=== PATIENT | female | born 1975 | race Caucasian/White ===

== ENCOUNTER → 2024-03-18 06:24 | Day surgery (SDC) | payer BC, SELFPAY | LOC: GI 06:24 | PROVIDERS: ATTENDING PHYSICIAN Internal Medicine Gastroenterology; FAMILY PHYSICIAN Family Medicine | DX: D50.9 Iron deficiency anemia, unspecified (principal); K52.9 Noninfective gastroenteritis and colitis, unspecified; K64.8 Other hemorrhoids; K63.89 Other specified diseases of intestine; K44.9 Diaphragmatic hernia without obstruction or gangrene; K22.2 Esophageal obstruction | CPT/HCPCS: 45380; 43239; 88305 ==

== ENCOUNTER → 2024-03-25 14:34 | Outpatient (REF) | payer BC, SELFPAY | LOC: HWRAD 14:34 | PROVIDERS: ATTENDING PHYSICIAN Internal Medicine Gastroenterology; FAMILY PHYSICIAN Family Medicine | DX: K38.8 Other specified diseases of appendix (principal) | CPT/HCPCS: 74177; Q9967 ==

== ENCOUNTER → 2024-04-15 18:51 | Outpatient (REF) | payer BC, SELFPAY | LOC: MRI 3T 18:51 | PROVIDERS: ATTENDING PHYSICIAN Obstetrics & Gynecology; FAMILY PHYSICIAN Family Medicine; REFERRING PHYSICIAN Surgery | DX: R93.89 Abnormal findings on diagnostic imaging of other specified body structures (principal) | CPT/HCPCS: 72197; A9575 ==

== ENCOUNTER 2024-05-10 12:11 | Day surgery (SDC) | payer BC, SELFPAY ==
[2024-05-02 09:04] LABS: INR 0.95; PT 13.2 Sec (11.4-14.6)
[2024-05-02 09:05] LABS: APTT 30.1 Sec (23.4-35.0)
[2024-05-02 09:13] LABS: Hematocrit 38.9 % (37.0-47.0); Hemoglobin 13.3 g/dL (12.0-16.0); Mean Corp Hgb Conc. 34.2 g/dL (33.0-37.0); Mean Corpuscular Hgb 30.4 pg (27.0-31.0); Mean Platelet Volume 9.9 fL (7.4-10.4); Platelet Count 262 10^3/uL (130-400); Red Blood Cell Count 4.37 10^6/uL (4.20-5.40); Red Cell Dist. Width 12.5 % (11.5-14.5); White Blood Cell Count 4.2 10^3/uL (4.8-10.8)
[2024-05-02 09:33] VITALS: BMI 25.3
[2024-05-02 09:37] LABS: ALT (SGPT) 15 U/L (0-35); AST (SGOT) 24 U/L (14-36); Albumin 4.4 g/dl (3.5-5.0); Alkaline Phosphatase 52 U/L (38-126); Blood Urea Nitrogen 14 mg/dl (7-17); Calcium 9.4 mg/dl (8.4-10.2); Carbon Dioxide 28 mmol/L (22-30); Chloride 103 mmol/L (98-107); Estimated Creatinine Clearance 97 ml/min; Glucose 82 mg/dl (70-99); Potassium 4.4 mmol/L (3.5-5.1); Sodium 141 mmol/L (135-145); Total Bilirubin 0.5 mg/dl (0.2-1.3); Total Protein 7.1 g/dl (6.3-8.2); eGFR > 60.00
[2024-05-02 10:33] LABS: Glycohemoglobin (HgbA1c) 5.1 % (4.0-5.6)
[2024-05-10] VITALS (12 sets, daily range): BP systolic 110–134; BP diastolic 58–86; BMI 25.3
[2024-05-10] MEDS: ENTEREG 12 MG PO (12:22)
[2024-05-10] MEDS: TYLENOL 1000 MG PO (12:22)
[2024-05-10] MEDS: HEPARIN 5000 UNITS SC (12:22)
[2024-05-10 12:30] LABS: HCG, Urine Qualitative Screen Negative
--- NOTE | 2024-05-10 13:01 | W.SUR.PREOP ---
Pre-Operative Surgical Note
-
I have examined this patient prior to the performance of the scheduled procedure.
The patient's condition is unchanged from the time of the current History and
Physical and the patient is able to undergo the scheduled procedure.
--- NOTE | 2024-05-10 17:53 | W.IMMPOSTOP ---
Surgical Immed Post Op Note
-
Primary Surgeon: Jc Mc MD
Corporate Sales Representative: Angeles Kebede DO
Assistants: CORINA Gunderson & KAROL Hamm
Pre-op Diagnosis: Mucocele of the appendix, bilateral ovarian cysts
Post-op Diagnosis: Same
Procedure Performed: Robotic ileocolectomy with isoperistaltic anastomosis
Robotic total hyserectomy
Anesthesia Type: GET
Specimen / Cultures: Terminal ileum, cecum, appendix and portion of ascending colon
Uterus and bilateral ovaries and fallopian tubes, cysts
Estimated Blood Loss: 30cc
Complications: None
Operative Findings: Large mucocele of the appendix (unable to perform an appendectomy due to the anatomy)
Bilateral ovarian cysts/endometriosis
Patient's updated in the waiting room.
[2024-05-10] MEDS: ZOFRAN 4 MG IV (18:20)
[2024-05-10] MEDS: D5LR 1000 IV (18:29)
[2024-05-10] MEDS: TORADOL 15 MG IV ×2 (18:29→23:38)
[2024-05-10] MEDS: COMPAZINE 5 MG IV (18:40)
--- NOTE | 2024-05-10 20:00 | PTCARENOTE ---
Patient arrived via bed from PACU to 2 South. AAOx3 but somewhat drowsy, oriented to room and plan of care. at bedside. 7 lap sites with glue CDI, lopez draining yellow concentrated urine, IVF infusing per order. VSS, assessment on going.
[2024-05-10] MEDS: TYLENOL PO (21:10)
--- NOTE | 2024-05-10 23:11 | W.IMMPOSTOP ---
Surgical Immed Post Op Note
-
Primary Surgeon: Angeles Kebede DO
Kiln Burner: CORINA Gunderson
Pre-op Diagnosis: Bilateral complex adnexal cystic masses, menorrhagia, dysmenorrhea
Post-op Diagnosis: same; bilateral endometriomas, severe adhesions in posterior cul de sac involving both ovaries and uterus, pelvic peritoneum, enlarged uterus, probable adenomyosis.
Procedure Performed: Robotic assisted total laparoscopic hysterectomy, bilateral salpingo-oopherectomy, extensive lysis adhesions
Anesthesia Type: general ET Dr. Ladd
Specimen / Cultures: uterus, cervix, bilateral tubes and ovaries (containing endometriomas)
Estimated Blood Loss: 15ml
Complications: none
Operative Findings: Enlarged globular shaped uterus with appearance suspicious for adenomyosis. Large left endometrioma/chocolate cyst approx 6 cm with adhesions involving more than 80% of ovary to posterior uterus and pelvic peritoneum in cul de
sac. Right ovary with smaller endometrioma densely adherent to posterior uterus and pelvic peritoneum also involving over 80% of ovary. Tubes with some adhesions but otherwise normal in appearance.
Counts correct at end of case.
Stable at completion of my portion of the case. Dr. Mc resumed care of patient to complete the surgery.
[2024-05-10] MEDS: TYLENOL 650 MG PO (23:39)
[2024-05-11 03:05] VITALS: BP 129/90
[2024-05-11] MEDS: D5LR 1000 IV ×2 (04:02→15:09)
[2024-05-11] MEDS: TYLENOL PO (04:49)
[2024-05-11] MEDS: TORADOL 15 MG IV ×4 (05:51→23:00)
[2024-05-11 06:41] VITALS: BMI 25.7
[2024-05-11 06:52] LABS: % Basophils 0.1 % (0-2); % Immature Granulocytes 0.4 % (0-0.5); % Lymphocytes 4.1 % (20.5-51.1); % Monocytes 3.1 % (1.7-9.3); % Neutrophils 92.3 % (42.2-75.2); Absolute Immature Granulocytes 0.1 10^3/uL (0-0.05); Absolute Lymphocytes 0.5 10^3/uL (1.2-3.4); Absolute Monocytes 0.4 10^3/uL (0.1-0.6); Absolute Neutrophils 10.6 10^3/uL (1.4-6.5); Hematocrit 37.8 % (37.0-47.0); Hemoglobin 13.3 g/dL (12.0-16.0); Mean Corp Hgb Conc. 35.2 g/dL (33.0-37.0); Mean Corpuscular Hgb 31.2 pg (27.0-31.0); Mean Corpuscular Volume 88.7 fL (81.0-99.0); Mean Platelet Volume 9.5 fL (7.4-10.4); Nucleated Red Blood Cells % 0 %; Platelet Count 238 10^3/uL (130-400); Red Blood Cell Count 4.26 10^6/uL (4.20-5.40); Red Cell Dist. Width 12.2 % (11.5-14.5); White Blood Cell Count 11.5 10^3/uL (4.8-10.8)
[2024-05-11 07:00] VITALS: BP 121/80
[2024-05-11 07:16] LABS: Blood Urea Nitrogen 10 mg/dl (7-17); Calcium 9.1 mg/dl (8.4-10.2); Carbon Dioxide 23 mmol/L (22-30); Chloride 103 mmol/L (98-107); Estimated Creatinine Clearance 111 ml/min; Glucose 160 mg/dl (70-99); Potassium 4.4 mmol/L (3.5-5.1); Sodium 139 mmol/L (135-145); eGFR > 60.00
[2024-05-11] MEDS: ENTEREG 12 MG PO ×2 (09:05→19:55)
[2024-05-11] MEDS: PROZAC 20 MG PO (09:05)
[2024-05-11] MEDS: TYLENOL 650 MG PO ×5 (09:05→23:01)
--- NOTE | 2024-05-11 10:39 | W.PN.CRS1 ---
Today's Communication / Plan
-
Clear liquids
Voiding trial
Assessment/Plan
-
49 yo female with history of appendiceal mucocele and bilateral complex adnexal cysttic mass and dysmenorrhea who is POD #1 Robotic ileocolectomy with isoperistaltic anastomosis (Alexandro) with robotic total hysterectomy and BSO (Delio)
AFVSS
Labs stable
No n/v or flatus
--C/W CLD, will advance to LRD once passing flatus
--Analgesics scheduled and prn
--OOB/Ambulate
--Discontinue lopez
--Complete current bag of IVF then D/C
--OOB/Ambulate
--OR path pending
--Lovenox 40mg SQ for VTE ppx
Subjective Data
Procedure
05/10/24 Robotic ileocolectomy with isoperistaltic anastomosis
Robotic total hysterectomy BSO
Subjective Data
Date of Service: May 11, 2024
Patient seeen and examined at bedside with Dr. Mc.
Objective Data
-
Vital Signs
Temp Pulse Resp BP Pulse Ox
98.5 F 89 16 121/80 94
05/11/24 07:00 05/11/24 07:00 05/11/24 07:00 05/11/24 07:00 05/11/24 08:00
Intake & Output
05/10/24 05/11/24 05/12/24
06:59 06:59 06:59
Intake Total 1250 / 1250
Output Total 1120 / 1120
Balance 130 / 130
Intake:
Oral fluids 960 / 960
IV fluids (Total) 290 / 290
D5LR 190 / 190
LR 100 / 100
Output:
Urine, Lopez 1120 / 1120
Lab Results
05/11/24 06:07
05/11/24 06:07
Physical Exam
-
General: No Acute Distress
HEENT: Grossly Normal
Abdomen: Soft, Non Distended and Tender (minimal to incisions)
Skin: Warm and Dry
Incision: Clear, Dry, Intact
[2024-05-11 11:32] VITALS: BP 124/75
--- NOTE | 2024-05-11 11:47 | CM ---
Patient seen at bedside. Patient states that she lives in a 2 story home and has no DME and Dr. Cano is her PCP. Patient uses the [facility] in [place]. Patient stated that she plans for discharge home tomorrow. Patient family also present. Patient with
no needs at this time. CM will continue to follow for discharge planning needs.
Plan; home with no needs anticipated.
--- NOTE | 2024-05-11 14:30 | W.PN.OBG.DWH ---
Today's Communication / Plan
-
Pain mgmt
OOB
Diet as per colorectal service.
Assessment/Plan
-
A/P:
POD#1 s/p RA [facility] BSO for menorrhagia, suspected adenomyosis, and severe endometriosis with pelvic adhesions.
Doing well postop.
Analgesia mgmt
OOB
Diet as per colorectal service.
Reviewed operative findings. Discussed expectations from changes in hormones due to BSO.
Discussed ERT as option to help alleviate vasomotor symptoms, vaginal estradiol for prevention atrophic vaginal changes with menopause.
Subjective Data
-
Feeling well. No complaints.
Adequate pain control.
No flatus yet but feeling some 'rumblings'
No dizziness/lightheadedness
Objective Data
-
Laboratory Results
05/11/24 06:07
05/11/24 06:07
Vital Signs
Temp Pulse Resp BP Pulse Ox
98.4 F 83 16 124/75 98
05/11/24 11:32 05/11/24 11:32 05/11/24 11:32 05/11/24 11:32 05/11/24 11:32
VSS afeb
cor: regular rate
abd: soft +bs ND NT inc cdi
no calf pain, scds on
[2024-05-11 15:06] VITALS: BP 117/82
[2024-05-11] MEDS: LOVENOX 40 MG SC (17:13)
[2024-05-11 19:38] VITALS: BP 119/76
[2024-05-11 23:11] VITALS: BP 132/73
[2024-05-12 00:50] VITALS: BP 118/73
[2024-05-12] MEDS: D5LR IV (01:25)
[2024-05-12] MEDS: TYLENOL 650 MG PO ×6 (03:11→23:04)
[2024-05-12 05:23] LABS: Hematocrit 28.9 % (37.0-47.0); Hemoglobin 9.9 g/dL (12.0-16.0); Mean Corp Hgb Conc. 34.3 g/dL (33.0-37.0); Mean Corpuscular Hgb 30.9 pg (27.0-31.0); Mean Corpuscular Volume 90.3 fL (81.0-99.0); Mean Platelet Volume 9.3 fL (7.4-10.4); Platelet Count 192 10^3/uL (130-400); Red Cell Dist. Width 12.5 % (11.5-14.5); White Blood Cell Count 8.8 10^3/uL (4.8-10.8)
[2024-05-12 05:50] VITALS: BP 119/77
--- NOTE | 2024-05-12 06:10 | W.PN.UPDATE ---
Update Note
Progress Note Update
Three episodes of dark brown to crimson colored stool overnight. Asymptomatic with bp 119/77. Hgb 13.3 to 9.9 this am. She did receive 3 liters of IVF. EBL from procedure estimated at 30 ml. Some crimson colored drainage noted on chux without bm.
Toradol and Lovenox held. Dr. Mc updated via TT and acknowledged receipt.
[2024-05-12 06:45] VITALS: BMI 24.5
[2024-05-12 07:20] VITALS: BP 106/75
[2024-05-12] MEDS: PROZAC 20 MG PO (08:06)
[2024-05-12] MEDS: ENTEREG 12 MG PO ×2 (08:06→19:43)
--- NOTE | 2024-05-12 10:29 | CM ---
Patient seen at bedside, patient awaiting clarification about discharge. CM will continue to follow for discharge planning needs.
Plan; home with no needs anticipated.
--- NOTE | 2024-05-12 11:21 | W.PN.OBG.DWH ---
Addendum entered and electronically signed by Angeles Kebede, 05/12/24 12:25:
typo correction: * blood transfusion
Original Note:
Today's Communication / Plan
-
Stat H/H
Pt aware of possibility of bleed transfusion
NPO
For colorectal evaluation today. Dr. Mc in surgery presently.
Assessment/Plan
-
POD#2 s/p RA TLH BSO for endometriosis/endoemtriomas/adhesion, adenomyosis, menorrhagia ()
S/P robotic ileocecectomy with isoperistaltic anastomosis ()
Postop anemia and drop in hgb. Will check stat H/H. Will make NPO for now.
She does not exhibit eveidence of vaginal bleeding. Suspect GI source.
D/W Portia Edwards PA-C (colorectal service).
Discussed with patient- aware of possible transfusion.
Dr. Mc in OR presently.
Subjective Data
-
Pt seen and examined.
Was in BR and reported what seemed like ' a lot ' of blood in toilet. Passed something per rectum (not sure if stool or clot).
Feels a little lightheaded with ambulation.
Adequate pain relief.
Yandel diet
+ FLatus
No bleeding per vagina.Pad has scant pink superficial staining only.
Objective Data
-
Laboratory Results
05/11/24 06:07
Vital Signs
Temp Pulse Resp BP Pulse Ox
97.5 F 88 16 106/75 98
05/12/24 07:20 05/12/24 07:20 05/12/24 07:20 05/12/24 07:20 05/12/24 08:00
VSS afeb pulse 88 T 97.5 afeb
Appearance: pleasant, no acute distress
Cor: regular
Abd: soft ND NT inc cdi
Vagina- no active bleeding, no evidence of blood at distal end vagina
Ext:no calf pain
[2024-05-12 11:22] LABS: Hemoglobin 9.1 g/dL (12.0-16.0)
--- NOTE | 2024-05-12 12:16 | W.PN.CRS1 ---
Today's Communication / Plan
-
repeat h/h later today
Assessment/Plan
-
49 yo female with history of appendiceal mucocele and bilateral complex adnexal cysttic mass and dysmenorrhea who is POD #1 Robotic ileocolectomy with isoperistaltic anastomosis (Alexandro) with robotic total hysterectomy and BSO (Delio)
AFVSS
Hgb 9.1 from 9.9 from 13.3
No n/v or flatus
--Repeat h/h later today
--Analgesics scheduled and prn
--OOB/Ambulate
--Voiding post lopez removal
--OOB/Ambulate
--OR path pending
--Lovenox/Toradol held given bleeding
--TEDS/SCDS for DVT prophylaxis
-Was on low residue, currently NPO
Subjective Data
Procedure
05/10/24 Robotic ileocolectomy with isoperistaltic anastomosis
Robotic total hysterectomy BSO
Subjective Data
Date of Service: May 12, 2024
Patient states she had about 5 episodes of bleeding per rectum overnight. Her last one was a few hours ago. She had some nausea earlier which has resolved. She denies any vomiting. She is having flatus and liquidy bowel movements. She is not in
any pain.
Objective Data
-
Vital Signs
Temp Pulse Resp BP Pulse Ox
97.5 F 88 16 106/75 98
05/12/24 07:20 05/12/24 07:20 05/12/24 07:20 05/12/24 07:20 05/12/24 08:00
Intake & Output
05/11/24 05/12/24 05/13/24
06:59 06:59 06:59
Intake Total 1250 / 1250 3120 / 3120
Output Total 1120 / 1120 1450 / 1450
Balance 130 / 130 1670 / 1670
Intake:
Oral fluids 960 / 960 3120 / 3120
IV fluids (Total) 290 / 290
D5LR 190 / 190
LR 100 / 100
Output:
Urine, Lopez 1120 / 1120 350 / 350
Urine, Voided 1100 / 1100
Other:
Number of unmeasured liquid
stools
Rectum 1
Lab Results
05/12/24 11:06
05/11/24 06:07
Physical Exam
-
General: No Acute Distress and AOx3
Abdomen: Soft, Non Distended and Non Tender
Skin: Warm and Dry
Incision: Clear, Dry, Intact
--- NOTE | 2024-05-12 12:19 | W.PN.UPDATE ---
Update Note
Progress Note Update
H/H: .07/14 down from .28.6 at 04:38
Speculum exam: no blood in vaginal vault, cuff intact.
Bleeding is GI related. Slight drop in Hgb over 6 hrs.
Serial H/H.
Colorectal service aware.
[2024-05-12] MEDS: TRANEXAMIC ACID 110 MG IV (14:44)
[2024-05-12 15:25] VITALS: BP 108/70
[2024-05-12 18:42] LABS: Hematocrit 23.5 % (37.0-47.0); Hemoglobin 8.4 g/dL (12.0-16.0)
[2024-05-12 23:22] VITALS: BP 101/72
[2024-05-13] MEDS: TYLENOL 650 MG PO ×2 (03:19→08:42)
[2024-05-13 06:00] VITALS: BMI 24.4
[2024-05-13 06:41] LABS: % Basophils 0.9 % (0-2); % Eosinophils 4.2 % (0-6); % Immature Granulocytes 0.2 % (0-0.5); % Lymphocytes 28.2 % (20.5-51.1); % Monocytes 6.6 % (1.7-9.3); % Neutrophils 59.9 % (42.2-75.2); Absolute Basophils 0.1 10^3/uL (0-0.2); Absolute Eosinophils 0.2 10^3/uL (0-0.7); Absolute Lymphocytes 1.6 10^3/uL (1.2-3.4); Absolute Monocytes 0.4 10^3/uL (0.1-0.6); Absolute Neutrophils 3.5 10^3/uL (1.4-6.5); Hematocrit 26.2 % (37.0-47.0); Mean Corp Hgb Conc. 34.4 g/dL (33.0-37.0); Mean Corpuscular Hgb 31.1 pg (27.0-31.0); Mean Corpuscular Volume 90.7 fL (81.0-99.0); Mean Platelet Volume 9.9 fL (7.4-10.4); Nucleated Red Blood Cells % 0 %; Platelet Count 197 10^3/uL (130-400); Red Blood Cell Count 2.89 10^6/uL (4.20-5.40); Red Cell Dist. Width 12.5 % (11.5-14.5); White Blood Cell Count 5.8 10^3/uL (4.8-10.8)
--- NOTE | 2024-05-13 07:42 | W.PN.OBG.DWH ---
Today's Communication / Plan
-
OOB, diet as per colorectal service recommendation.
Assessment/Plan
-
POD#3 s/p RA TLH BSO lysis adhesions and robotic laparoscopic ileocectomy with anastomosis
Anemia-hgb stabilized this am hgb 9.0 (was 8.4). No bleeding.
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
Will defer to colorectal for mgmt, advancing diet, discharge.
Pt will follow up with me in office in 2 wks.
Subjective Data
-
POD#3 Feeling better. Reports having 'normal' formed stool today.
Feels a little weak when ambulation. No CP or SOB
Objective Data
-
Laboratory Results
05/13/24 05:09
05/11/24 06:07
Vital Signs
Temp Pulse Resp BP Pulse Ox
98.2 F 83 20 101/72 95
05/12/24 23:22 05/12/24 23:22 05/12/24 23:22 05/12/24 23:22 05/12/24 23:22
VSS afeb
abd: soft NDNT inc cdi
no vaginal bleeding
ext: no calf pain
HGB improved/stable 9.0 this am
[2024-05-13 07:59] VITALS: BP 107/64
[2024-05-13] MEDS: PROZAC 20 MG PO (08:42)
[2024-05-13] MEDS: ENTEREG 12 MG PO (08:42)
--- NOTE | 2024-05-13 11:29 | CM ---
Reviewed the chart notes. Diet advanced to low residual. CM continues to be available to patient/family and is monitoring medical plan for needs at discharge.
Plan: Discharge to home when medically stable. No needs anticipated.
--- NOTE | 2024-05-13 12:08 | W.PN.CRS1 ---
Today's Communication / Plan
-
Low residue diet
Possible DC later today
Assessment/Plan
-
49 yo female with history of appendiceal mucocele and bilateral complex adnexal cysttic mass and dysmenorrhea who is POD #1 Robotic ileocolectomy with isoperistaltic anastomosis (Alexandro) with robotic total hysterectomy and BSO (Delio)
AFVSS
Hgb 9.0 from 9.1
No n/v or flatus
--Hemoglobin has stabilized, no further rectal bleeding
--Analgesics scheduled and prn
--OOB/Ambulate
--OOB/Ambulate
--OR path pending
--Lovenox/Toradol held given bleeding
--TEDS/SCDS for DVT prophylaxis
-Restart low residue diet
-Possible discharge later today if no further bleeding and can tolerate a low residue
Subjective Data
Procedure
05/10/24 Robotic ileocolectomy with isoperistaltic anastomosis
Robotic total hysterectomy BSO
Subjective Data
Date of Service: May 13, 2024
Patient states she feels much better today. She denies nausea or vomiting. She is having loose bowel movements. She has no blood in her stool since yesterday.
Objective Data
-
Vital Signs
Temp Pulse Resp BP Pulse Ox
98.0 F 73 16 107/64 96
05/13/24 07:59 05/13/24 07:59 05/13/24 07:59 05/13/24 07:59 05/13/24 08:30
Intake & Output
05/12/24 05/13/24 05/14/24
06:59 06:59 06:59
Intake Total 3120 / 3120 1728 / 1728
Output Total 1450 / 1450
Balance 1670 / 1670 1728 / 1728
Intake:
Oral fluids 3120 / 3120 1628 / 1628
IV fluids (Total) 100 / 100
Output:
Urine, F[place]ar 350 / 350
Urine, Voided 1100 / 1100
Other:
Number of approximated MODERATE 4
amounts of urine
Number of unmeasured liquid
stools
Rectum 4
Lab Results
05/13/24 05:09
05/11/24 06:07
Physical Exam
-
General: No Acute Distress and AOx3
Abdomen: Soft, Non Distended and Tender (Mild right lower quadrant)
Skin: Warm and Dry
[2024-05-13] MEDS: TYLENOL PO (13:04)
--- NOTE | 2024-05-13 14:02 | W.DS.TRANS ---
DC Summary - Bee Farmer
-
Discharge Instructions:
Sleep Apnea Risk Low
Discharge Diagnosis/Procedures Robotic assisted total laparoscopic hysterectomy
, bilateral salpingo-oopherectomy, extensive
lysis adhesions
Diet Low Residue
Activity No strenuous activity
Additional Activity No lifting over 10 pounds (gallon of milk)
Driving Restrictions No driving for 1 week
Bathing Restrictions OK to Shower
Wound Care Allow glue to naturally fall off. Do not pick
at incisions.
Instructions: Low Fiber Diet
Stand-Alone Forms:
Changes to Home Medications: No
Discharge Medications:
DC Medications w/original date entered in [employer]
fluoxetine 20 mg tablet 20 mg PO DAILY 05/03/24
Home Medication Changes
Pending Results: Yes
Additional Pending Results:
OR pathology pending
[2024-05-13 14:55] VITALS: BP 119/93
== END 2024-05-13 15:27 | disposition home or self-care (01) ==
LOC: SDS 12:11
PROVIDERS: Physician Assistant; Registered Nurse; ATTENDING PHYSICIAN Surgery; FAMILY PHYSICIAN Family Medicine; REFERRING PHYSICIAN Obstetrics & Gynecology
DX: C18.1 Malignant neoplasm of appendix (principal); N80.103 Endometriosis of bilateral ovaries, unspecified depth; D25.1 Intramural leiomyoma of uterus; N83.201 Unspecified ovarian cyst, right side; N83.202 Unspecified ovarian cyst, left side; N80.03 Adenomyosis of the uterus; N94.6 Dysmenorrhea, unspecified; N92.0 Excessive and frequent menstruation with regular cycle; Z86.79 Personal history of other diseases of the circulatory system
CPT/HCPCS: 58571; 58661; 58662; 44970; 88305; 88307; 36415; 80048; 80053; 81025; 83036; 85014; 85018; 85025; 85027; 85610; 85730; 86850; 86900; 86901; J1335

== ENCOUNTER → 2024-08-05 13:27 | Outpatient (REF) | payer BC, SELFPAY ==
[2024-08-05 13:32] LABS: % Basophils 1.7 % (0-2); % Eosinophils 1.9 % (0-6); % Lymphocytes 26.2 % (20.5-51.1); % Monocytes 8.6 % (1.7-9.3); % Neutrophils 61.6 % (42.2-75.2); Absolute Basophils 0.1 10^3/uL (0-0.2); Absolute Eosinophils 0.1 10^3/uL (0-0.7); Absolute Lymphocytes 1.4 10^3/uL (1.2-3.4); Absolute Monocytes 0.5 10^3/uL (0.1-0.6); Absolute Neutrophils 3.2 10^3/uL (1.4-6.5); Hematocrit 31.2 % (37.0-47.0); Hemoglobin 9.9 g/dL (12.0-16.0); Mean Corp Hgb Conc. 31.7 g/dL (33.0-37.0); Mean Corpuscular Hgb 24.2 pg (27.0-31.0); Mean Corpuscular Volume 76.3 fL (81.0-99.0); Mean Platelet Volume 9.1 fL (7.4-10.4); Platelet Count 291 10^3/uL (130-400); Red Blood Cell Count 4.09 10^6/uL (4.20-5.40); Red Cell Dist. Width 17.5 % (11.5-14.5); White Blood Cell Count 5.2 10^3/uL (4.8-10.8)
== END ==
LOC: OIDL 13:27
PROVIDERS: ATTENDING PHYSICIAN Nurse Practitioner Adult Health
DX: D50.9 Iron deficiency anemia, unspecified (principal)
CPT/HCPCS: 85025

== ENCOUNTER → 2024-08-12 14:01 | Outpatient (REF) | payer BC, SELFPAY ==
[2024-08-12 13:46] LABS: % Basophils 1.5 % (0-2); % Eosinophils 1.5 % (0-6); % Lymphocytes 25.8 % (20.5-51.1); % Monocytes 6.9 % (1.7-9.3); % Neutrophils 64.3 % (42.2-75.2); Absolute Basophils 0.1 10^3/uL (0-0.2); Absolute Eosinophils 0.1 10^3/uL (0-0.7); Absolute Lymphocytes 1.4 10^3/uL (1.2-3.4); Absolute Monocytes 0.4 10^3/uL (0.1-0.6); Absolute Neutrophils 3.4 10^3/uL (1.4-6.5); Hematocrit 32.3 % (37.0-47.0); Hemoglobin 10.2 g/dL (12.0-16.0); Mean Corp Hgb Conc. 31.6 g/dL (33.0-37.0); Mean Corpuscular Hgb 24.4 pg (27.0-31.0); Mean Corpuscular Volume 77.3 fL (81.0-99.0); Mean Platelet Volume 9.2 fL (7.4-10.4); Platelet Count 276 10^3/uL (130-400); Red Blood Cell Count 4.18 10^6/uL (4.20-5.40); Red Cell Dist. Width 19.6 % (11.5-14.5); White Blood Cell Count 5.3 10^3/uL (4.8-10.8)
== END ==
LOC: OIDL 14:01
PROVIDERS: ATTENDING PHYSICIAN Nurse Practitioner Adult Health
DX: D50.9 Iron deficiency anemia, unspecified (principal)
CPT/HCPCS: 85025

== ENCOUNTER → 2024-08-19 16:15 | Outpatient (REF) | payer BC, SELFPAY ==
[2024-08-19 13:22] LABS: % Basophils 1.4 % (0-2); % Eosinophils 1.6 % (0-6); % Immature Granulocytes 0.2 % (0-0.5); % Lymphocytes 23.6 % (20.5-51.1); % Monocytes 5.6 % (1.7-9.3); % Neutrophils 67.6 % (42.2-75.2); Absolute Basophils 0.1 10^3/uL (0-0.2); Absolute Eosinophils 0.1 10^3/uL (0-0.7); Absolute Lymphocytes 1.3 10^3/uL (1.2-3.4); Absolute Monocytes 0.3 10^3/uL (0.1-0.6); Absolute Neutrophils 3.7 10^3/uL (1.4-6.5); Hematocrit 33.2 % (37.0-47.0); Hemoglobin 10.7 g/dL (12.0-16.0); Mean Corp Hgb Conc. 32.2 g/dL (33.0-37.0); Mean Corpuscular Hgb 25.3 pg (27.0-31.0); Mean Corpuscular Volume 78.5 fL (81.0-99.0); Platelet Count 275 10^3/uL (130-400); Red Blood Cell Count 4.23 10^6/uL (4.20-5.40); Red Cell Dist. Width 20.9 % (11.5-14.5); White Blood Cell Count 5.5 10^3/uL (4.8-10.8)
== END ==
LOC: OIDL 16:15
PROVIDERS: ATTENDING PHYSICIAN Nurse Practitioner Adult Health
DX: D50.9 Iron deficiency anemia, unspecified (principal)
CPT/HCPCS: 85025

== ENCOUNTER → 2025-01-24 10:17 | Outpatient (REF) | payer BC, SELFPAY | LOC: WDC 10:17 | PROVIDERS: ATTENDING PHYSICIAN Obstetrics & Gynecology; FAMILY PHYSICIAN Family Medicine | DX: R92.8 Other abnormal and inconclusive findings on diagnostic imaging of breast (principal) | CPT/HCPCS: 76642 ==